=== PATIENT | female | born 1995 | race Hispanic/Latino ===

== ENCOUNTER 2021-07-18 06:52 | Emergency (ER) | payer OTHER ==
[~2021-07-18] VITALS: Ht 152.4 cm; Wt 106.6 kg
[2021-07-18] MEDS ORDERED: TETRACAINE HCL 0.5% OPTH SOLN 4 ML BTL OP ONE (07:15)
[2021-07-18] MEDS ORDERED: FLUORESCEIN SOD(OPTH) 1 MG STRP OP ONE (07:15)
[2021-07-18] MEDS ORDERED: LIDOCAINE HCL 1% 2 ML AMP INJ ONE (07:15)
[2021-07-18] MEDS ORDERED: TETANUS/DIPHTHERIA TOX ADULT 0.5 ML SYR IM ONE (07:15)
[2021-07-18] MEDS ORDERED: LIDOCAINE HCL 1% LOCAL INJ 20 ML VIAL ONE (07:35)
[2021-07-18] MEDS ORDERED: IBUPROFEN 600 MG TAB PO STA (07:43)
[2021-07-18] MEDS ORDERED: [UNRECOGNIZED DRUG - CODE] PO (07:48)
== END 2021-07-18 08:07 | disposition home or self-care (01) ==
LOC: ER 07:46
DX: S01.81XA Laceration without foreign body of other part of head, initial encounter (principal); W54.0XXA Bitten by dog, initial encounter; Y99.8 Other external cause status; Z23 Encounter for immunization
CPT/HCPCS: 12011; 90471; 99283; J2001

== ENCOUNTER 2021-07-19 23:32 | Emergency (ER) | payer OTHER ==
[~2021-07-19] VITALS: Ht 152.4 cm; Wt 106.6 kg
[~2021-07-19 23:32] MED LIST: [UNRECOGNIZED DRUG - CODE] PO
== END 2021-07-20 00:20 | disposition home or self-care (01) ==
LOC: ER 07-20
DX: Z09 Encounter for follow-up examination after completed treatment for conditions other than malignant neoplasm (principal); S01.81XD Laceration without foreign body of other part of head, subsequent encounter; W54.0XXD Bitten by dog, subsequent encounter
CPT/HCPCS: 99282

== ENCOUNTER 2021-07-25 18:26 | Emergency (ER) | payer SELFPAY ==
[~2021-07-25] VITALS: Ht 152.4 cm; Wt 106.6 kg
[2021-07-25 18:53] VITALS: BP 101/49
== END 2021-07-25 18:50 | disposition home or self-care (01) ==
LOC: ER 18:35
DX: Z48.02 Encounter for removal of sutures (principal)
CPT/HCPCS: 99282

== ENCOUNTER 2021-09-23 11:06 | Emergency (ER) | payer SELFPAY ==
[~2021-09-23] VITALS: Ht 152.4 cm; Wt 106.6 kg
== END 2021-09-23 12:38 | disposition home or self-care (01) ==
LOC: ER 11:13
DX: R05.9 Cough, unspecified (principal); U07.1 COVID-19; R11.0 Nausea
CPT/HCPCS: 99283; U0002

== ENCOUNTER 2021-11-27 19:33 | Emergency (ER) | payer SELFPAY ==
[~2021-11-27] VITALS: Ht 152.4 cm; Wt 106.6 kg
[2021-11-27] MEDS ORDERED: IBUPROFEN 600 MG TAB PO STA (19:50)
[2021-11-27] MEDS ORDERED: ONDANSETRON HCL 4 MG ORAL DISINTEGRATING TAB PO ONE (20:00)
[2021-11-27 20:04] LABS: CLARITY,URINE CLEAR (CLEAR); COLOR,URINE YELLOW (YELLOW); KETONES,URINE 1+ (NEGATIVE); LEUKOCYTE ESTERASE ,URINE NEGATIVE (NEGATIVE); NITRITE,URINE NEGATIVE (NEGATIVE); PROTEIN,URINE DIPSTICK NEGATIVE (NEGATIVE); URINE UROBILINOGEN 0.2 mg/dL (0.2 - 1)
[2021-11-27 20:15] LABS: BACTERIA,URINE FEW /HPF; EPITHELIAL CELLS,URINE MODERATE /LPF
[2021-11-27 21:37] LABS: BASOPHILS % 0.2 % (0.0-1.0); EOSINOPHILS # (AUTO) 0.1 (0.0-0.4); EOSINOPHILS % 0.6 % (0.0-6.0); HEMOGLOBIN 12.5 g/dL (12.0-16.0); LYMPHOCYTES # (AUTO) 2.9 (1.0-3.2); LYMPHOCYTES % 26.2 % (18.0-39.1); MEAN CORPUSCULAR HEMOGLOBIN 24.1 pg (28-32); MEAN CORPUSCULAR HGB CONC 32.1 g/dL (31-35); MEAN CORPUSCULAR VOLUME 75.3 fL (81-99); MONOCYTES # (AUTO) 0.7 (0.2-0.8); MONOCYTES % 5.8 % (4.4-11.3); NEUTROPHILS # (AUTO) 7.5 (2.1-6.9); NEUTROPHILS % 66.8 % (38.7-80.0); PLATELET COUNT 432 x10e3/uL (140-360); RED BLOOD COUNT 5.18 x10e6/uL (3.6-5.1); RED CELL DISTRIBUTION WIDTH 15.4 % (11.7-14.4)
[2021-11-27 21:51] LABS: ALBUMIN 3.8 g/dL (3.5-5.0); ANION GAP 13.5 mmol/L (8-16); CALCIUM 9.1 mg/dL (8.4-10.2); CREATININE, SERUM 0.7 mg/dL (0.57-1.11); POTASSIUM 3.5 mmol/L (3.5-5.1)
[2021-11-27] MEDS ORDERED: IOPAMIDOL 370 MG/ML 100 ML INFUS..BTL INJ ONE (22:13)
[2021-11-28 00:39] VITALS: BP 100/52
== END 2021-11-28 00:41 | disposition home or self-care (01) ==
LOC: ER 19:47
DX: R10.30 Lower abdominal pain, unspecified (principal); N83.202 Unspecified ovarian cyst, left side; R30.0 Dysuria; M54.50 Low back pain, unspecified
CPT/HCPCS: 36415; 74177; 80053; 81001; 81025; 85025; 99284; Q0162; Q9967

== ENCOUNTER 2022-06-09 07:53 | Emergency (ER) | payer SELFPAY ==
[~2022-06-09] VITALS: Ht 154.9 cm; Wt 106.6 kg
[2022-06-09] MEDS ORDERED: BENZONATATE 100 MG CAP PO STA (08:44)
[2022-06-09] MEDS ORDERED: KETOROLAC TROMETHAMINE 60 MG/2 ML VIAL IM ONE (08:45)
[2022-06-09 10:34] LABS: CLARITY,URINE TURBID (CLEAR); COLOR,URINE YELLOW (YELLOW); KETONES,URINE NEGATIVE (NEGATIVE); LEUKOCYTE ESTERASE ,URINE NEGATIVE (NEGATIVE); NITRITE,URINE NEGATIVE (NEGATIVE); PROTEIN,URINE DIPSTICK NEGATIVE (NEGATIVE); URINE UROBILINOGEN 0.2 mg/dL (0.2 - 1)
[2022-06-09 10:47] LABS: WBC,URINE (MAN) 0-5 /HPF (0-5)
[2022-06-09 10:48] LABS: AMORPHOUS SEDIMENT,URINE MANY (FEW); BACTERIA,URINE MODERATE /HPF; EPITHELIAL CELLS,URINE FEW /LPF; RBC,URINE 0-5 /HPF (0-5)
[2022-06-09] MEDS ORDERED: CEPHALEXIN500 MG PO (11:03)
[2022-06-09] MEDS ORDERED: BENZONATATE100 MG PO (11:03)
[2022-06-09 11:18] VITALS: BP 118/67
== END 2022-06-09 11:20 | disposition home or self-care (01) ==
LOC: EDBD 07:56 → ER 07:56
DX: R05.9 Cough, unspecified (principal); N39.0 Urinary tract infection, site not specified; R11.2 Nausea with vomiting, unspecified; Z20.822 Contact with and (suspected) exposure to COVID-19
CPT/HCPCS: 71046; 81001; 81025; 87400; 93005; 99283; J1885; U0002

== ENCOUNTER 2022-06-19 15:00 | Emergency (ER) | payer SELFPAY ==
[~2022-06-19] VITALS: Ht 154.9 cm; Wt 106.6 kg
[~2022-06-19 15:00] MED LIST changes: +BENZONATATE100 MG PO; +CEPHALEXIN500 MG PO
[2022-06-19] MEDS ORDERED: FAMOTIDINE 20 MG/2 ML VIAL IV STA (15:12)
[2022-06-19] MEDS ORDERED: Morphine 4mg INJECTION 4 MG/ML INJ IV STA (15:12)
[2022-06-19] MEDS ORDERED: SODIUM CHLORIDE 0.9% 1000ML 1,000 ML IV STA (15:12)
[2022-06-19] MEDS ORDERED: ONDANSETRON HCL INJ 2MG/ML 2ML 2 MG/ML VIAL IV STA (15:12)
[2022-06-19 15:50] LABS: BASOPHILS % 0.3 % (0.0-1.0); EOSINOPHILS % 0.2 % (0.0-6.0); HEMOGLOBIN 12.5 g/dL (12.0-16.0); LYMPHOCYTES # (AUTO) 0.8 (1.0-3.2); LYMPHOCYTES % 6.9 % (18.0-39.1); MEAN CORPUSCULAR HEMOGLOBIN 24.1 pg (28-32); MEAN CORPUSCULAR HGB CONC 31.3 g/dL (31-35); MEAN CORPUSCULAR VOLUME 77.2 fL (81-99); MONOCYTES # (AUTO) 0.4 (0.2-0.8); MONOCYTES % 3.7 % (4.4-11.3); NEUTROPHILS # (AUTO) 10.4 (2.1-6.9); NEUTROPHILS % 88.6 % (38.7-80.0); PLATELET COUNT 389 x10e3/uL (140-360); RED BLOOD COUNT 5.18 x10e6/uL (3.6-5.1); RED CELL DISTRIBUTION WIDTH 15.3 % (11.7-14.4)
[2022-06-19 16:04] LABS: ALANINE AMINOTRANSFERASE 41 IU/L (0-55); ALBUMIN 3.8 g/dL (3.5-5.0); ALBUMIN/GLOBULIN RATIO 0.9 (0.8-2.0); ALKALINE PHOSPHATASE 128 IU/L (40-150); ANION GAP 15.8 mmol/L (8-16); BLOOD UREA NITROGEN 13 mg/dL (7-26); BUN/CREATININE RATIO 17 (6-25); CALCIUM 8.9 mg/dL (8.4-10.2); CARBON DIOXIDE 21 mmol/L (22-29); CHLORIDE 104 mmol/L (98-107); CREATININE, SERUM 0.77 mg/dL (0.57-1.11); GLUCOSE 100 mg/dL (74-118); LIPASE 13 U/L (8-78); POTASSIUM 3.8 mmol/L (3.5-5.1); SODIUM 137 mmol/L (136-145)
[2022-06-19] MEDS ORDERED: IOPAMIDOL 370 MG/ML 100 ML INFUS..BTL INJ ONE (16:57)
[2022-06-19] MEDS ORDERED: CEFDINIR300 MG PO (19:38)
[2022-06-19 20:45] LABS: CLARITY,URINE SL CLOUDY (CLEAR); COLOR,URINE YELLOW (YELLOW); KETONES,URINE NEGATIVE (NEGATIVE); LEUKOCYTE ESTERASE ,URINE NEGATIVE (NEGATIVE); NITRITE,URINE NEGATIVE (NEGATIVE); PROTEIN,URINE DIPSTICK NEGATIVE (NEGATIVE); URINE UROBILINOGEN 0.2 mg/dL (0.2 - 1)
[2022-06-19 20:46] VITALS: BP 101/63
[2022-06-19 20:57] LABS: EPITHELIAL CELLS,URINE FEW /LPF; RBC,URINE 0-5 /HPF (0-5)
== END 2022-06-19 20:40 | disposition home or self-care (01) ==
LOC: ER 15:06
DX: R10.33 Periumbilical pain (principal); N39.0 Urinary tract infection, site not specified; R11.2 Nausea with vomiting, unspecified; R19.7 Diarrhea, unspecified
CPT/HCPCS: 36415; 74177; 80053; 81001; 83690; 84702; 85025; 99284; J2270; J2405; J7030; Q9967

== ENCOUNTER 2022-08-04 06:54 | Emergency (ER) | payer SELFPAY ==
[~2022-08-04] VITALS: Ht 154.9 cm; Wt 106.1 kg
[~2022-08-04 06:54] MED LIST changes: +CEFDINIR300 MG PO
[2022-08-04] MEDS ORDERED: DONNATAL/LIDOCAINE/MAALOX 30 ML SUSP PO STA (07:15)
[2022-08-04] MEDS ORDERED: ONDANSETRON HCL INJ 2MG/ML 2ML 2 MG/ML VIAL IV PRN (07:15)
[2022-08-04] MEDS ORDERED: SODIUM CHLORIDE 0.9% 1000ML 1,000 ML IV STA (07:15)
[2022-08-04] MEDS ORDERED: DICYCLOMINE HCL 20 MG/2 ML VIAL IM ONE (07:15)
[2022-08-04 07:23] LABS: BASOPHILS % 0.2 % (0.0-1.0); EOSINOPHILS # (AUTO) 0.1 (0.0-0.4); EOSINOPHILS % 0.4 % (0.0-6.0); HEMATOCRIT 38.3 % (34.2-44.1); HEMOGLOBIN 12.3 g/dL (12.0-16.0); LYMPHOCYTES # (AUTO) 1.4 (1.0-3.2); LYMPHOCYTES % 11.9 % (18.0-39.1); MEAN CORPUSCULAR HEMOGLOBIN 24.3 pg (28-32); MEAN CORPUSCULAR HGB CONC 32.1 g/dL (31-35); MEAN CORPUSCULAR VOLUME 75.5 fL (81-99); MONOCYTES # (AUTO) 0.4 (0.2-0.8); MONOCYTES % 3.6 % (4.4-11.3); NEUTROPHILS # (AUTO) 10.1 (2.1-6.9); NEUTROPHILS % 83.7 % (38.7-80.0); PLATELET COUNT 430 x10e3/uL (140-360); RED BLOOD COUNT 5.07 x10e6/uL (3.6-5.1); RED CELL DISTRIBUTION WIDTH 15.8 % (11.7-14.4)
[2022-08-04 07:41] LABS: CLARITY,URINE CLOUDY (CLEAR); COLOR,URINE YELLOW (YELLOW); LEUKOCYTE ESTERASE ,URINE NEGATIVE (NEGATIVE); NITRITE,URINE NEGATIVE (NEGATIVE); PROTEIN,URINE DIPSTICK NEGATIVE (NEGATIVE)
[2022-08-04 07:42] LABS: KETONES,URINE NEGATIVE (NEGATIVE); URINE UROBILINOGEN 0.2 mg/dL (0.2 - 1)
[2022-08-04 07:57] LABS: ALBUMIN 3.8 g/dL (3.5-5.0); ANION GAP 13.8 mmol/L (8-16); CALCIUM 8.9 mg/dL (8.4-10.2); CREATININE, SERUM 0.77 mg/dL (0.57-1.11); POTASSIUM 3.8 mmol/L (3.5-5.1)
[2022-08-04 08:02] LABS: AMORPHOUS SEDIMENT,URINE MODERATE (FEW); BACTERIA,URINE FEW /HPF; EPITHELIAL CELLS,URINE FEW /LPF; RBC,URINE 0-5 /HPF (0-5); WBC,URINE (MAN) 0-5 /HPF (0-5)
[2022-08-04] MEDS ORDERED: ONDANSETRON ODT4 MG PO (08:13)
[2022-08-04] MEDS ORDERED: DICYCLOMINE HCL20 MG PO (08:13)
[2022-08-04 08:33] VITALS: O2SAT 98
== END 2022-08-04 08:44 | disposition home or self-care (01) ==
LOC: ER 06:57
DX: R10.13 Epigastric pain (principal); R11.2 Nausea with vomiting, unspecified; E86.0 Dehydration; Z79.899 Other long term (current) drug therapy
CPT/HCPCS: 36415; 80053; 81001; 83690; 84702; 85025; 99284; C9113; J0500; J2405; J7030

== ENCOUNTER 2023-12-29 13:40 | Emergency (ER) | payer SELFPAY ==
[~2023-12-29] VITALS: Ht 154.9 cm; Wt 106.1 kg
[~2023-12-29 13:40] MED LIST changes: +DICYCLOMINE HCL20 MG PO; +NAPROSYN500 MG PO; +ONDANSETRON ODT4 MG PO; +ORPHENADRINE C100 MG PO
[2023-12-29 14:52] VITALS: TEMP 98.6
[2023-12-29 15:13] LABS: BILIRUBIN,URINE NEGATIVE (NEGATIVE); CLARITY,URINE SL CLOUDY (CLEAR); COLOR,URINE YELLOW (YELLOW); GLUCOSE, URINE NEGATIVE (NEGATIVE); KETONES,URINE NEGATIVE (NEGATIVE); LEUKOCYTE ESTERASE ,URINE NEGATIVE (NEGATIVE); NITRITE,URINE NEGATIVE (NEGATIVE); PH,URINE 6 (5 - 7); PROTEIN,URINE DIPSTICK NEGATIVE (NEGATIVE); URINE UROBILINOGEN 0.2 mg/dL (0.2 - 1)
[2023-12-29 15:14] LABS: PREGNANCY TEST, URINE NEGATIVE (NEGATIVE)
[2023-12-29 15:28] LABS: BACTERIA,URINE FEW /HPF; EPITHELIAL CELLS,URINE MODERATE /LPF; RBC,URINE 0-5 /HPF (0-5); WBC,URINE (MAN) 0-5 /HPF (0-5)
[2023-12-29] MEDS ORDERED: IOPAMIDOL 370 MG/ML 100 ML INFUS..BTL INJ ONE (17:18)
[2023-12-29 17:41] LABS: BASOPHILS # (AUTO) 0.1 (0.0-0.1); BASOPHILS % 0.5 % (0.0-1.0); EOSINOPHILS # (AUTO) 0.3 (0.0-0.4); EOSINOPHILS % 2.4 % (0.0-6.0); HEMATOCRIT 38.9 % (34.2-44.1); HEMOGLOBIN 11.6 g/dL (12.0-16.0); LYMPHOCYTES % 28.1 % (18.0-39.1); MEAN CORPUSCULAR HEMOGLOBIN 24.3 pg (28-32); MEAN CORPUSCULAR HGB CONC 29.8 g/dL (31-35); MEAN CORPUSCULAR VOLUME 81.6 fL (81-99); MONOCYTES # (AUTO) 0.8 (0.2-0.8); MONOCYTES % 7.1 % (4.4-11.3); NEUTROPHILS # (AUTO) 6.4 (2.1-6.9); NEUTROPHILS % 61.3 % (38.7-80.0); PLATELET COUNT 410 x10e3/uL (140-360); RED BLOOD COUNT 4.77 x10e6/uL (3.6-5.1); RED CELL DISTRIBUTION WIDTH 14.3 % (11.7-14.4)
[2023-12-29] MEDS: KETOROLAC TROMETHAMINE 30 MG/ML VIAL IV STA (17:51)
[2023-12-29] MEDS: ONDANSETRON HCL INJ 2MG/ML 2ML 2 MG/ML VIAL IV STA (17:51)
[2023-12-29] MEDS: SODIUM CHLORIDE 0.9% 1000ML 1,000 ML IV ONE (17:52)
[2023-12-29 18:04] LABS: ALBUMIN 3.9 g/dL (3.5-5.0); ANION GAP 11.8 mmol/L (8-16); BILIRUBIN,TOTAL 0.2 mg/dL (0.2-1.2); CALCIUM 9.2 mg/dL (8.4-10.2); CREATININE, SERUM 0.74 mg/dL (0.57-1.11); POTASSIUM 3.8 mmol/L (3.5-5.1)
[2023-12-29 22:00] VITALS: PULSE 89; RESP 20; O2SAT 100
== END 2023-12-29 22:30 | disposition home or self-care (01) ==
LOC: ER 16:03
DX: R30.0 Dysuria (principal); N83.201 Unspecified ovarian cyst, right side
CPT/HCPCS: 36415; 74177; 76830; 76856; 80053; 81001; 81025; 83690; 85025; 99284; J1885; J2405; J7030; Q9967

== ENCOUNTER 2024-01-31 17:29 | Emergency (ER) | payer SELFPAY ==
[~2024-01-31] VITALS: Ht 154.9 cm; Wt 106.1 kg
[2024-01-31 19:02] VITALS: PULSE 99; RESP 16; TEMP 98.3; O2SAT 99
== END 2024-01-31 19:04 | disposition home or self-care (01) ==
LOC: ER 18:02
DX: S63.691A Other sprain of left index finger, initial encounter (principal); M25.442 Effusion, left hand; W17.89XA Other fall from one level to another, initial encounter; Y93.01 Activity, walking, marching and hiking; Y92.89 Other specified places as the place of occurrence of the external cause
CPT/HCPCS: 99283

== ENCOUNTER 2024-02-11 08:07 | Emergency (ER) | payer SELFPAY ==
[~2024-02-11] VITALS: Ht 160 cm; Wt 107.5 kg
[2024-02-11 08:47] LABS: BASOPHILS % 0.3 % (0.0-1.0); EOSINOPHILS % 0.1 % (0.0-6.0); HEMATOCRIT 35.6 % (34.2-44.1); HEMOGLOBIN 10.5 g/dL (12.0-16.0); LYMPHOCYTES % 12.9 % (18.0-39.1); MEAN CORPUSCULAR HEMOGLOBIN 23.2 pg (28-32); MEAN CORPUSCULAR HGB CONC 29.5 g/dL (31-35); MEAN CORPUSCULAR VOLUME 78.6 fL (81-99); MONOCYTES # (AUTO) 0.6 (0.2-0.8); MONOCYTES % 7.5 % (4.4-11.3); NEUTROPHILS # (AUTO) 6.1 (2.1-6.9); NEUTROPHILS % 78.8 % (38.7-80.0); PLATELET COUNT 332 x10e3/uL (140-360); RED BLOOD COUNT 4.53 x10e6/uL (3.6-5.1); RED CELL DISTRIBUTION WIDTH 15.2 % (11.7-14.4); WHITE BLOOD COUNT 7.74 x10e3/uL (4.8-10.8)
[2024-02-11 08:57] LABS: INR 0.99; PROTHROMBIN TIME 13.7 seconds (11.9-14.5)
[2024-02-11 09:04] LABS: ALANINE AMINOTRANSFERASE 25 IU/L (0-55); ALBUMIN 3.5 g/dL (3.5-5.0); ALBUMIN/GLOBULIN RATIO 0.9 (0.8-2.0); ALKALINE PHOSPHATASE 114 IU/L (40-150); ANION GAP 13.6 mmol/L (8-16); BILIRUBIN,TOTAL 0.3 mg/dL (0.2-1.2); BLOOD UREA NITROGEN 7 mg/dL (7-26); BUN/CREATININE RATIO 9 (6-25); CALCIUM 8.6 mg/dL (8.4-10.2); CARBON DIOXIDE 21 mmol/L (22-29); CHLORIDE 107 mmol/L (98-107); CREATININE, SERUM 0.78 mg/dL (0.57-1.11); EST GLOMERULAR FILTRATION RATE 105 ML/MIN (>=60); GLUCOSE 107 mg/dL (74-118); POTASSIUM 3.6 mmol/L (3.5-5.1); SODIUM 138 mmol/L (136-145); TOTAL PROTEIN 7.3 g/dL (6.5-8.1)
[2024-02-11 09:05] LABS: CLARITY,URINE SL CLOUDY (CLEAR); COLOR,URINE YELLOW (YELLOW); LEUKOCYTE ESTERASE ,URINE NEGATIVE (NEGATIVE); NITRITE,URINE NEGATIVE (NEGATIVE); PH,URINE 6 (5 - 7); PROTEIN,URINE DIPSTICK 1+ (NEGATIVE)
[2024-02-11 09:06] LABS: BACTERIA,URINE MODERATE /HPF; BILIRUBIN,URINE NEGATIVE (NEGATIVE); EPITHELIAL CELLS,URINE MODERATE /LPF; GLUCOSE, URINE NEGATIVE (NEGATIVE); KETONES,URINE NEGATIVE (NEGATIVE); RBC,URINE 0-5 /HPF (0-5); URINE UROBILINOGEN 0.2 mg/dL (0.2 - 1)
[2024-02-11] MEDS: BENZONATATE 100 MG CAP PO STA (09:21)
[2024-02-11] MEDS: IBUPROFEN 400 MG TAB PO ONE (09:21)
[2024-02-11] MEDS: SODIUM CHLORIDE 0.9% 1000ML 1,000 ML IV ONE ×2 (09:22→09:28)
[2024-02-11 09:32] LABS: INFLUENZA A AG NEGATIVE (NEGATIVE)
[2024-02-11 09:33] LABS: CORONAVIRUS COVID-19 AG NEGATIVE (NEGATIVE); INFLUENZA B AG NEGATIVE (NEGATIVE)
[2024-02-11 11:28] VITALS: PULSE 100; RESP 18; TEMP 99.4; O2SAT 100
== END 2024-02-11 10:30 | disposition home or self-care (01) ==
LOC: ER 08:11
DX: R50.9 Fever, unspecified (principal); B34.9 Viral infection, unspecified; R10.12 Left upper quadrant pain; R19.7 Diarrhea, unspecified; R05.9 Cough, unspecified; I10 Essential (primary) hypertension; Z11.52 Encounter for screening for COVID-19
CPT/HCPCS: 36415; 71046; 80053; 81001; 83605; 84702; 85025; 85610; 85730; 87040; 87086; 87428; 93005; 99284; J7030